=== PATIENT | male | born 1965 | race Caucasian/White ===

== ENCOUNTER → 2016-12-08 | Outpatient (CLI) | payer OTHER ==
--- NOTE | 2016-12-09 10:56 | DEXA ---
AP SPINE L1 - L4 0.989 -1.7 -1.8 LT FEMUR TOTAL 0.912 -0.8 -0.9 RT FEMUR TOTAL 0.921 -0.7 -0.9 TOTAL BODY TOTAL OTHER DUAL FEMUR FRAX* ASSESSMENT Risk factors: History of adult fractures. 10 year probability of fracture Major osteoporotic fracture 9.4 % Hip fracture 1.4 % COMMENTS: There is low bone density of the spine and hips. FOLLOW-UP: Recommendation for the next bone density exam: 2 years. ELINOR
== END ==
LOC: M WHC 09:19
PROVIDERS: ATTEND Family Medicine
DX: M89.9 Disorder of bone, unspecified (principal)

== ENCOUNTER 2017-01-18 12:38 | Emergency (ER) | payer OTHER ==
[~2017-01-18] VITALS: Ht 180.3 cm; Wt 84.1 kg
[2017-01-18] MEDS ORDERED: EPINEPHrine INJ 1 MG/ML 1ML AMP IM STA (13:08)
[2017-01-18] MEDS ORDERED: FAMOTIDINE/NS 20 MG/50 ML BAG (S0028) As Ordered ONE (13:13)
[2017-01-18] MEDS ORDERED: methylPREDNISolone INJ 125 MG/2 ML VIAL (J2930) IV ONE (13:15)
[2017-01-18] MEDS ORDERED: FAMOTIDINE INJ 20MG/2ML VIAL (S0028) IVP ONE (13:15)
[2017-01-18 13:23] LABS: BASO % 0.5 % (0.0-1.0); EOS # 0.1 K/mm3 (0.0-0.50); EOS % 0.9 % (0.0-3.0); LARGE UNSTAINED CELL # 0.2 K/mm3 (0.0-0.4); LARGE UNSTAINED CELL % 3.2 % (0.0-4.0); LYMPH # 3.3 K/mm3 (1.5-4.5); LYMPH % 47.4 % (24.0-44.0); MEAN CORPUSCULAR HEMOGLOBIN 29.3 pg (27.0-33.0); MEAN CORPUSCULAR HGB CONC 34.2 g/dl (32.0-36.5); MEAN CORPUSCULAR VOLUME 85.8 fl (80.0-96.0); MONO # 0.6 K/mm3 (0.0-0.8); MONO % 8.5 % (0.0-5.0); NEUTROPHILS # 2.6 K/mm3 (1.8-7.7); NEUTROPHILS % 39.5 % (36.0-66.0); PLATELET COUNT, AUTOMATED 245 k/mm3 (150-450); RED CELL DISTRIBUTION WIDTH 12.6 % (11.5-14.5); WHITE BLOOD COUNT 6.5 K/mm3 (4.0-10.0)
[2017-01-18 13:29] LABS: ANION GAP 9 MEQ/L (8-16); BLOOD UREA NITROGEN 24 MG/DL (7-18); CALCIUM LEVEL 8.9 MG/DL (8.5-10.1); CARBON DIOXIDE LEVEL 24 MEQ/L (21-32); CHLORIDE LEVEL 108 MEQ/L (98-107); CREATININE FOR GFR 1.11 MG/DL (0.70-1.30); GLOMERULAR FILTRATION RATE > 60.0 (>56); GLUCOSE, FASTING 97 MG/DL (70-105); POTASSIUM SERUM 4.1 MEQ/L (3.5-5.1); SODIUM LEVEL 141 MEQ/L (136-145)
--- NOTE | 2017-01-18 15:13 | REP ---
Chest two views HISTORY: Chest pain Comparison: 04/17/2012 The lungs are clear. The heart is normal in size. The pulmonary vasculature is normal in appearance. There are old compression fractures of the T7 , 11 and 12 vertebral bodies with minimal height loss. IMPRESSION: No acute disease. Signed by Palmer Inman MD 01/18/2017 03:05 P
[2017-01-18] MEDS ORDERED: EPIP0.3I2 IJ (18:55)
[2017-01-18 19:38] VITALS: BP 130/75
--- NOTE | 2017-01-19 20:08 | ECGEPIP ---
Stationary ECG Study [facility] - ED Test Date: 2017-01-18 Pat Name: RANDEE BONNER Department: Room: - Gender: M Supplemental Nurse: fanta : 1965 Requested By: Nieves Jack Order Number: [id number] Reading MD: Parth Holm Measurements Intervals [place] Rate: 68 P: [place]: 0 QRS: 54 QRSD: 90 T: 20 QT: 381 QTc: 406 Interpretive Statements NSR WITH PACS NONSPECIFIC ST T WAVE CHANGES ABNORMAL RHYTHM ECG NO OLD ECG FOR COMPARISON Electronically Signed On 01-19-2017 20:08:29 EDT by Parth Holm
== END 2017-01-18 20:03 | disposition home or self-care (01) ==
LOC: M ED 12:38
DX: S51.852A Open bite of left forearm, initial encounter (principal); R07.89 Other chest pain; X58.XXXA Exposure to other specified factors, initial encounter; Y92.9 Unspecified place or not applicable; Y99.9 Unspecified external cause status; Y93.9 Activity, unspecified; Z91.030 Bee allergy status
CPT/HCPCS: 71020; 80048; 82550; 82553; 83880; 85025; 93005; 93041; 94760; 96372; 96374; 96375; 99285; J2930

== ENCOUNTER 2019-03-28 12:44 | Emergency (ER) | payer OTHER ==
[~2019-03-28] VITALS: Ht 180.3 cm; Wt 88.4 kg
[2019-03-28 12:44] VITALS: BP 130/80
[~2019-03-28 12:44] MED LIST: EPIP0.3I2 IJ
[2019-03-28] MEDS ORDERED: AUGM875T28 PO (13:25)
[2019-03-28] MEDS ORDERED: ADACEL/BOOSTRIX VACCINE (DIPHTH/PERTUSS/ACELL/TETANUS)0.5ML SYR (90715) IM ONE (13:30)
[2019-03-29] MEDS ORDERED: EPIP0.3I2 IM (09:21)
[2019-03-29] MEDS ORDERED: ALEV220T22 PO (09:21)
== END 2019-03-28 14:10 | disposition home or self-care (01) ==
LOC: M ED 12:44
DX: S61.332A Puncture wound without foreign body of right middle finger with damage to nail, initial encounter (principal); W55.01XA Bitten by cat, initial encounter; Y92.099 Unspecified place in other non-institutional residence as the place of occurrence of the external cause; Y93.89 Activity, other specified; Y99.9 Unspecified external cause status

== ENCOUNTER 2019-04-12 07:53 | Day surgery (SDC) | payer OTHER ==
[~2019-04-12] VITALS: Ht 180.3 cm; Wt 84.3 kg
[~2019-04-12 07:53] MED LIST changes: +ALEV220T22 PO; +AUGM875T28 PO; +EPIP0.3I2 IM; +NS 1,000 ML IV SCH
[2019-04-12] MEDS ORDERED: LIDOCAINE 2% INJ 100 MG/5 ML SDV (FOR ANES.) As Ordered ONE (08:55)
[2019-04-12] MEDS ORDERED: PROPOFOL 200 MG/20 ML VIAL As Ordered ONE (08:55)
--- NOTE | 2019-04-12 09:34 | ROOR ---
Patient Name: Alexander Mendoza Procedure Date: 04/12/2019 9:10 AM Date of : 1965 Age: 54 Room: [facility] Gender: Male Note Status: Finalized Procedure: Colonoscopy Indications: High risk colon cancer surveillance: Personal history of colonic polyps, Last colonoscopy: January 2014 Providers: Alexander BHAGAT MD Referring MD: RAGHAV AVILEZ MD Requesting Provider: Medicines: Monitored Anesthesia Care Complications: No immediate complications. Procedure: Pre-Anesthesia Assessment: - The heart rate, respiratory rate, oxygen saturations, blood pressure, adequacy of pulmonary ventilation, and response to care were monitored throughout the procedure. The Colonoscope was introduced through the anus and advanced to the terminal ileum, with identification of the appendiceal orifice and IC valve. The colonoscopy was performed without difficulty. The patient tolerated the procedure well. The quality of the bowel preparation was good. Findings: The perianal and digital rectal examinations were normal. Two sessile polyps were found in the sigmoid colon. The polyps were 3 to 5 mm in size. These polyps were removed with a cold snare. Resection and retrieval were complete. The exam was otherwise without abnormality on direct and retroflexion views. Impression: - Two 3 to 5 mm polyps in the sigmoid colon, removed with a cold snare. Resected and retrieved. - The examination was otherwise normal on direct and retroflexion views. Recommendation: - Repeat colonoscopy in 5 years for surveillance. Alexander Bhagat MD Alexander BHAGAT MD 04/12/2019 9:34:42 AM Electronically signed by Alexander BHAGAT MD Number of Addenda: 0 Note Initiated On: 04/12/2019 9:10 AM Estimated Blood Loss: Estimated blood loss: none.
[2019-04-12 10:07] VITALS: BP 109/75
== END 2019-04-12 10:09 | disposition home or self-care (01) ==
LOC: M OPP 07:53
PROVIDERS: ATTEND Internal Medicine Gastroenterology
DX: Z12.11 Encounter for screening for malignant neoplasm of colon (principal); Z86.010 Personal history of colon polyps; D12.5 Benign neoplasm of sigmoid colon; Z91.030 Bee allergy status; Z79.899 Other long term (current) drug therapy

== ENCOUNTER 2021-11-11 22:52 | Emergency (ER) | payer OTHER ==
[~2021-11-11] VITALS: Ht 180.3 cm; Wt 86.4 kg
[~2021-11-11 22:52] MED LIST changes: -NS 1,000 ML IV SCH
[2021-11-12] MEDS ORDERED: AUGM500T34 PO (06:13)
[2021-11-12] MEDS ORDERED: AUGMENTIN 875 MG TAB PO ONE (06:15)
[2021-11-12] MEDS ORDERED: NAPROXEN 250 MG TAB PO ONE (06:15)
[2021-11-12 06:17] VITALS: BP 132/77
== END 2021-11-12 06:41 | disposition home or self-care (01) ==
LOC: M ED 22:52
DX: S51.859A Open bite of unspecified forearm, initial encounter (principal); S81.859A Open bite, unspecified lower leg, initial encounter; W55.01XA Bitten by cat, initial encounter; Y92.099 Unspecified place in other non-institutional residence as the place of occurrence of the external cause; Y93.9 Activity, unspecified; Y99.9 Unspecified external cause status; Z91.030 Bee allergy status

== ENCOUNTER 2022-04-07 23:29 | Day surgery (SDC) | payer OTHER ==
[~2022-04-07] VITALS: Ht 180.3 cm; Wt 86.4 kg
[~2022-04-07 23:29] MED LIST changes: +AUGM500T34 PO
[2022-04-08] VITALS (8 sets, daily range): BP systolic 96–111; BP diastolic 53–66
[2022-04-08 00:15] LABS: BASO % 0.3 % (0.0-1.0); EOS # 0.1 10^3/uL (0.0-0.5); EOS % 0.5 % (0.0-3.0); HEMATOCRIT 44.8 % (42.0-52.0); HEMOGLOBIN 14.7 g/dl (13.5-17.5); INR 0.98; LYMPH # 1.5 10^3/uL (1.5-5.0); LYMPH % 13.5 % (24.0-44.0); MEAN CORPUSCULAR HEMOGLOBIN 28.9 pg (27.0-33.0); MEAN CORPUSCULAR HGB CONC 32.8 g/dl (32.0-36.5); MONO # 1.1 10^3/uL (0.0-0.8); MONO % 9.9 % (2.0-8.0); NEUTROPHILS # 8.3 10^3/uL (1.5-8.5); NEUTROPHILS % 75.3 % (36.0-66.0); PLATELET COUNT, AUTOMATED 210 10^3/uL (150-450); PROTHROMBIN TIME 13.2 SECONDS (12.5-14.5); RED BLOOD COUNT 5.09 10^6/uL (4.30-6.10); WHITE BLOOD COUNT 11.1 10^3/uL (4.0-10.0)
[2022-04-08] MEDS ORDERED: ACETAMINOPHEN 325 MG TAB PO ONE (00:25)
[2022-04-08] MEDS ORDERED: NS 1,000 ML IV ONE (00:25)
[2022-04-08] MEDS ORDERED: ONDANSETRON 4MG 2ML VIAL IV ONE (00:25)
[2022-04-08] MEDS ORDERED: KETOROLAC 30 MG/ML 1ML VIAL IV ONE (00:25)
[2022-04-08] MEDS ORDERED: ISOVUE-370 76% 100ML VIAL As Ordered ONE (00:29)
[2022-04-08 00:36] LABS: ALT/SGPT 22 U/L (12-78); AMYLASE 65 U/L (25-115); BILIRUBIN,DIRECT 0.1 MG/DL (0.0-0.2); BILIRUBIN,TOTAL 0.5 MG/DL (0.2-1.0); BLOOD UREA NITROGEN 16 MG/DL (7-18); C REACTIVE PROTEIN QUANTITATIV 1.82 MG/DL (0.00-0.30); CALCIUM LEVEL 9.1 MG/DL (8.5-10.1); CARBON DIOXIDE LEVEL 26 MEQ/L (21-32); CHLORIDE LEVEL 106 MEQ/L (98-107); CREATININE FOR GFR 1.14 MG/DL (0.70-1.30); GLOMERULAR FILTRATION RATE > 60.0 (>56); GLUCOSE, FASTING 111 MG/DL (70-100); SODIUM LEVEL 138 MEQ/L (136-145); TOTAL PROTEIN 7.3 GM/DL (6.4-8.2)
[2022-04-08 00:46] LABS: LIPASE 125 U/L (73-393)
[2022-04-08] MEDS ORDERED: PIPERACILLIN/TAZOBACTAM SOD 3.375 GM in D5W MINI-BAG PLUS 50 ML IV ONE (01:40)
[2022-04-08 01:42] LABS: RSV AMPLIFICATION NEGATIVE (NEGATIVE)
[2022-04-08] MEDS ORDERED: EPIP0.3I2 IM (01:42)
[2022-04-08] MEDS ORDERED: NS 1,000 ML IV SCH (01:45)
[2022-04-08] MEDS ORDERED: HOME MED LIST COMPLETE! XX SCH (01:45)
[2022-04-08] MEDS ORDERED: ACETAMINOPHEN 1000MG 100ML IV BTL (OFIRMEV) (J0131 PER 10MG) As Ordered ONE (04:30)
[2022-04-08] MEDS ORDERED: dexameTHASONE 4 MG/ML 1ML VIAL (J1100 PER 1MG) As Ordered ONE (04:30)
[2022-04-08] MEDS ORDERED: LIDOCAINE 2% 100MG/5ML SDV (FOR ANES.) As Ordered ONE (04:30)
[2022-04-08] MEDS ORDERED: METOCLOPRAMIDE INJ 10MG/2ML VIAL (J2765 PER 1) As Ordered ONE (04:30)
[2022-04-08] MEDS ORDERED: propofoL 200 MG/20 ML VIAL As Ordered ONE (04:30)
[2022-04-08] MEDS ORDERED: ROCURONIUM BROMIDE 50 MG/5 ML VIAL As Ordered ONE (04:30)
[2022-04-08] MEDS ORDERED: fentaNYL 100 MCG/2 ML INJECTION As Ordered ONE (04:30)
[2022-04-08] MEDS ORDERED: MIDAZOLAM INJ 2MG/2ML VIAL (J2250 PER 1MG) As Ordered ONE (04:30)
[2022-04-08] MEDS ORDERED: ONDANSETRON 4MG 2ML VIAL As Ordered ONE (04:30)
[2022-04-08] MEDS ORDERED: SUGAMMADEX SODIUM 500 MG/5 ML VIAL (BRIDION) As Ordered ONE (04:30)
[2022-04-08] MEDS: BUPIVACAINE/EPIN 0.25% 30 ML VIAL As Ordered ONE ×2 (04:35→04:51)
[2022-04-08] MEDS: NS 1,000 ML IV SCH ×2 (05:00→13:16)
[2022-04-08] MEDS ORDERED: MORPHINE 4 MG/ML 1ML VIAL/SYRINGE IV PRN (05:00)
[2022-04-08] MEDS ORDERED: MORPHINE 2 MG/ML 1ML VIAL IV PRN (05:00)
[2022-04-08] MEDS ORDERED: MEPERIDINE INJ 25 MG/ML VIAL (J2175) As Ordered ONE (05:14)
[2022-04-08] MEDS: MEPERIDINE INJ 25 MG/ML VIAL (J2175) IV PRN ×2 (05:15→05:20)
[2022-04-08] MEDS ORDERED: fentaNYL 100 MCG/2 ML INJECTION IV PRN (05:15)
[2022-04-08] MEDS ORDERED: LR 1,000 ML IV SCH (05:15)
[2022-04-08] MEDS ORDERED: ONDANSETRON 4MG 2ML VIAL IV PRN (05:15)
[2022-04-08] MEDS: oxyCODONE 5MG TAB PO PRN ×2 (05:45→06:45)
[2022-04-08] MEDS: PIPERACILLIN/TAZOBACTAM SOD 3.375 GM in D5W MINI-BAG PLUS 50 ML IV SCH ×3 (08:02→20:43)
[2022-04-08] MEDS: PANTOPRAZOLE 40MG VIAL IV SCH (08:02)
[2022-04-08] MEDS: KETOROLAC 30 MG/ML 1ML VIAL IV SCH ×3 (08:03→18:06)
[2022-04-08] MEDS: ACETAMINOPHEN TAB 650MG DOSE (2X325MG) PO SCH ×3 (08:03→20:48)
[2022-04-09] MEDS: KETOROLAC 30 MG/ML 1ML VIAL IV SCH ×2 (00:58→06:32)
[2022-04-09 02:00] VITALS: BP 129/78
[2022-04-09] MEDS: PIPERACILLIN/TAZOBACTAM SOD 3.375 GM in D5W MINI-BAG PLUS 50 ML IV SCH ×2 (02:18→08:59)
[2022-04-09] MEDS ORDERED: ACETAMINOPHEN TAB 650MG DOSE (2X325MG) PO ONE (03:30)
[2022-04-09 06:12] VITALS: BP 127/77
[2022-04-09] MEDS: PANTOPRAZOLE 40MG VIAL IV SCH (08:59)
[2022-04-09] MEDS: ACETAMINOPHEN TAB 650MG DOSE (2X325MG) PO SCH (09:00)
== END 2022-04-09 10:35 | disposition home or self-care (01) ==
LOC: M ED 23:29 → M SDC 04-08 04:57 → M MS5PR 04-08 07:30 → M SDC 04-09 10:35
PROVIDERS: ATTEND Surgery
DX: K35.890 Other acute appendicitis without perforation or gangrene (principal); Z91.030 Bee allergy status
CPT/HCPCS: 44970; 74177; 80048; 80076; 81001; 81002; 82150; 83605; 83690; 85025; 85610; 85730; 86140; 87040; 87631; 88304; 96365; 96366; 96375; 96376; 99284; C9113; J0131; J1100; J1885; J2175; J2250; J2405; J2543; J2765; J3010; Q9967

== ENCOUNTER → 2023-09-30 | Outpatient (CLI) | payer OTHER | LOC: M WHC 10:43 | PROVIDERS: ATTEND Student in an Organized Health Care Education/Training Program | DX: M48.50XA Collapsed vertebra, not elsewhere classified, site unspecified, initial encounter for fracture (principal); M85.859 Other specified disorders of bone density and structure, unspecified thigh ==

== ENCOUNTER → 2024-08-01 | Outpatient (CLI) | payer OTHER | LOC: M RAD 11:40 | PROVIDERS: ATTEND Physician Assistant | DX: R07.81 Pleurodynia (principal) ==

== ENCOUNTER 2024-09-19 09:09 | Day surgery (SDC) | payer OTHER ==
[~2024-09-19] VITALS: Ht 180.3 cm; Wt 85.5 kg
[~2024-09-19 09:09] MED LIST changes: +NAPR-837 PO; +ROSU20TA86 PO; +THERTAB52 PO
[2024-09-19] MEDS ORDERED: propofoL 200 MG/20 ML VIAL As Ordered ONE (11:16)
[2024-09-19] MEDS ORDERED: ONDANSETRON 4MG 2ML VIAL As Ordered ONE (11:16)
[2024-09-19 11:31] VITALS: TEMP 97.3
[2024-09-19 12:00] VITALS: BP 112/69; O2SAT 99
== END 2024-09-19 12:17 | disposition home or self-care (01) ==
LOC: M OPP 09:09
PROVIDERS: ATTEND Surgery
DX: K64.0 First degree hemorrhoids (principal); Z86.0100 Personal history of colon polyps, unspecified; Z91.030 Bee allergy status; Z79.899 Other long term (current) drug therapy
CPT/HCPCS: 45378; J2405

== ENCOUNTER → 2024-10-31 | Outpatient (CLI) | payer OTHER | LOC: M RAD 06:29 | PROVIDERS: ATTEND Orthopaedic Surgery | DX: M25.511 Pain in right shoulder (principal) ==